=== PATIENT | female | born 1980 | race Caucasian/White ===

== ENCOUNTER 2019-12-22 18:17 | Emergency (ER) | payer OTHER, SELFPAY ==
[2019-12-22 18:21] VITALS: BP 127/84; PULSE 72; RESP 18; TEMP 36.7; O2SAT 100; BMI 25.8
--- NOTE | 2019-12-22 19:59 | W.ED.FALL ---
HPI - Fall General: Chief Complaint: Fall Stated Complaint: Syncope Time Seen by Provider: 12/22/19 19:55 History of Present Illness: HPI Narrative: 39-year-old female who was working in the kitchen got lightheaded and dizzy and started to fall felt like she is going to pass out, she did fall and struck the back of her head had a very brief loss of consciousness or stunned sensation. She not had any nausea or vomiting since then. She denies any chest pain did feel a brief episode of rapid heart rate. No nausea vomiting or diarrhea. Still feels very weak on arrival here mildly nauseous but not having vomiting. Mild headache. MD complaint: fall Fall from: standing Place fall occurred: home Loss of consciousness: Unsure Prolonged down time: no Symptoms prior to fall: lightheadedness, dizziness and palpitations Associated symptoms-after fall: Denies abdominal pain or chest pain Review of Systems Const: Denies: fever, chills, body aches, change in appetite, fatigue or malaise ENMT: Denies: throat pain, ear pain, nasal discharge or nasal congestion Card: Reports: palpitations; Denies: chest pain, edema, shortness of breath on exertion or shortness of breath when lying down Resp: Denies: shortness of breath, productive cough or non-productive cough GI: Denies: abdominal pain, nausea, vomiting, vomiting blood, coffee grounds in vomit, diarrhea, constipation, bloating, blood in stool or black tarry stool : Denies: flank pain, difficulty urinating, painful urination, urinary frequency or urinary urgency Skin/Breast: Denies: rash or itching PFSH ED PFSH: Social History Smoking and tobacco status: never smoked Physical Exam Const: COMMON NORMALS: no apparent distress GENERAL APPEARANCE: cooperative and comfortable ORIENTATION/CONSCIOUSNESS: Yes awake, Yes oriented to person, Yes oriented to place and Yes oriented to time HENMT: COMMON NORMALS: normocephalic, head/scalp atraumatic, hearing grossly normal bilaterally, external ears normal, EAC's normal, TM's normal bilaterally, nasal mucous membranes and turbinates normal, moist oral mucous membranes and oropharynx normal HEAD & SCALP: normocephalic and atraumatic NOSE: nasal mucous membranes and turbinates normal EXTERNAL EAR: Yes external ears normal EXTERNAL AUDITORY CANAL: EAC's normal TYMPANIC MEMBRANE: TM's normal bilaterally Eye: COMMON NORMALS: PERRL, EOMs intact bilaterally, conjunctivae normal and no scleral icterus CONJUNCTIVA: Yes conjunctivae normal PUPIL: Yes PERRL Neck/C-Spine: COMMON NORMALS: full ROM, no lymphadenopathy, supple and no JVD Lymph: LYMPHATIC: no lymphadenopathy noted and no lymphedema noted Resp: COMMON NORMALS: normal respiratory effort, no retractions, no use of accessory muscles and clear to auscultation bilaterally AUSCULTATION: clear to auscultation bilaterally Cardio: COMMON NORMALS: no JVD, regular rate, regular rhythm and no murmurs RATE: regular rate RHYTHM: regular rhythm GI: COMMON NORMALS: soft to palpation and no hepatosplenomegaly AUSCULTATION: Yes normoactive bowel sounds PALPATION: Yes soft, No tender, No guarding and Yes no hepatosplenomegaly Extremity: COMMON NORMALS: normal to inspection, normal capillary refill, no clubbing, cyanosis or edema, no calf tenderness and no pedal edema Neuro: SENSORIUM/ORIENTATION: Yes oriented to person, Yes oriented to place and Yes oriented to time Skin: COMMON NORMALS: no rashes or lesions noted GENERAL SKIN EXAM: no rashes or lesions noted Course ED course: Patient is feeling much better. Neurologic symptoms are completely normal organ to go ahead and discharge her home rest of his EKG which she is symptoms recheck. Vital Signs: Vital signs: Vital Signs Temperature 98.0 F 12/22/19 18:21 Pulse Rate 74 12/22/19 23:04 Respiratory Rate 18 12/22/19 23:04 Blood Pressure 99/67 12/22/19 23:04 Pulse Oximetry 96 12/22/19 23:04 - Fall Lab Data: Labs: Lab Results 12/22/19 12/22/19 12/22/19 Range/Units 20:24 20:35 20:35 WBC 11.5 H (4.0-10.0) 10^3/ uL RBC 4.67 (4.1-5.3) 10^6/u L Hgb 13.9 (11.5-15.3) g/dL Hct 41.6 (37.0-47.0) % MCV 89.1 (81-99) fL MCH 29.8 (28.0-34.0) pg MCHC 33.4 (30.0-36.0) g/dL RDW 12.4 (12.1-15.1) % Plt Count 253 (130-400) 10^3/c mm MPV 9.2 (7.4-10.4) fL Neut % (Auto) 76.9 % Lymph % (Auto) 17.8 % [place] % (Auto) 3.7 % Eos % (Auto) 0.7 % Baso % (Auto) 0.6 % Neut # (Auto) 8.8 H (1.8-7.7) 10^3/u L Lymph # (Auto) 2.0 (0.8-4.8) 10^3/u L [place] # (Auto) 0.4 (0.2-0.9) 10^3/u L Eos # (Auto) 0.1 (0.0-0.8) 10^3/u L Baso # (Auto) 0.1 (0.0-0.1) 10^3/u L Nucleated RBC % (a uto) 0 % Nucleated RBCs # 0.0 /100WBC Sodium 134 L (136-145) mmol/L Potassium 4.2 (3.5-5.1) mmol/L Chloride 98 (98-107) mmol/L Carbon Dioxide 25 (22-29) mmol/L Anion Gap 15.2 (5-19) BUN 16 (6-20) mg/dL Creatinine 0.6 (0.5-0.9) mg/dL GFR Calculation 111.3 (90-130) mL/min Glucose 117 H (65-115) mg/dL Calculated Osmolal ity 275 L (285-295) mOsm/k g Calcium 9.9 (8.5-10.5) mg/dL Total Bilirubin 0.2 (0.15-1.2) mg/dL AST 17 (0-32) U/L ALT 18 (0-33) U/L Alkaline Phosphata se 50 (35-105) IU/L Total Protein 7.5 (6.6-8.7) g/dL Albumin 4.6 (3.5-5.2) g/dL Globulin 2.9 (1.3-4.6) g/dL Urine Color Yellow (Yellow) Urine Appearance Hazy A (CLEAR) Urine pH 6.5 (5-7) Ur Specific Gravit y 1.010 (1.005-1.030) Urine Protein Neg (Negative) Urine Glucose (UA) Norm (Normal) Urine Ketones Negative (Negative) Urine Blood Neg (Negative) Urine Nitrate Negative (Negative) Urine Bilirubin Neg (NEGATIVE) Urine Urobilinogen Norm (Negative) mg/dL Ur Leukocyte Marva ase Negative (Negative) Urine RBC 0-4 H (0-2) /hpf Urine WBC 5-10 H (0-5) /hpf Ur Squamous Epith Cells 0-4 H (0-5) Urine Bacteria Trace (NONE) Discharge Plan Discharge Patient Disposition: Home, Self-Care Clinical Impression: Syncope Condition: Stable Prescriptions: No Action No Known Home Medications RF: 0 Discharge Orders: Discharge Order (Routine); Ordered 12/22/19 Ordered By: Juan Altman Referrals: Emilee Westbrook MD [Primary Care Provider] - Discharge Diet: Usual diet Discharge Activity: Increase activity as tolerated Activity Restrictions/Additional Instructions: Push fluids. Recheck if worsens Discharge Date/Time: 12/22/19 23:04 Coding Level of Care Code ED Pillowcase Cleaner for Artie Shabazz
[2019-12-22 20:00] VITALS: BP 115/79; BP 122/79; BP 130/74; PULSE 70; PULSE 71; PULSE 91
--- NOTE | 2019-12-22 20:16 | ECG_ITS ---
Measurements Intervals [place] Rate: 65 P: 32 MI: 179 QRS: 27 QRSD: 79 T: 36 QT: 391 QTc: 409 SINUS RHYTHM No previous ECG available for comparison Electronically Signed On 12-22-2019 20:42:36 CDT by Natalia Barahona M.D. [email or web address]
[2019-12-22 20:38] LABS: Add Urine Microscopic? YES; Bilirubin Urine Neg (NEGATIVE); Blood Urine Neg (Negative); Glucose Urine UA Norm (Normal); Ketones Urine Negative (Negative); Leukocyte Esterase Urine Negative (Negative); Nitrate Urine Negative (Negative); Protein Urine Neg (Negative); Urine Appearance Hazy (CLEAR); Urine Color Yellow (Yellow); Urobilinogen Urine Norm (Negative); pH Urine 6.5 (5-7)
[2019-12-22 20:40] LABS: Basophils # 0.1 10^3/uL (0.0-0.1); Basophils % 0.6 %; Eosinophils # 0.1 10^3/uL (0.0-0.8); Eosinophils % 0.7 %; Hematocrit 41.6 % (37.0-47.0); Hemoglobin 13.9 g/dL (11.5-15.3); Lymphocytes % 17.8 %; Mean Corpuscular HGB Conc 33.4 g/dL (30.0-36.0); Mean Corpuscular Hemoglobin 29.8 pg (28.0-34.0); Mean Corpuscular Volume 89.1 fL (81-99); Mean Platelet Volume 9.2 fL (7.4-10.4); Monocytes # 0.4 10^3/uL (0.2-0.9); Monocytes % 3.7 %; Neutrophils # 8.8 10^3/uL (1.8-7.7); Neutrophils % 76.9 %; Nucleated Red Blood Cells % 0 %; Platelet Count 253 10^3/cmm (130-400); Red Blood Count 4.67 10^6/uL (4.1-5.3); Red Cell Distribution Width 12.4 % (12.1-15.1); White Blood Count 11.5 10^3/uL (4.0-10.0)
[2019-12-22] MEDS: sodium chloride 0.9% 1,000 ML 999 ML IV (20:45)
[2019-12-22 20:46] LABS: Add Urine Culture? No; Bacteria Urine TRACE; RBC Urine 0-4 /hpf (0-2); Squamous Epithelial Cell Urine 0-4 (0-5)
[2019-12-22 20:58] LABS: Alanine Aminotransferase 18 U/L (0-33); Albumin Level 4.6 g/dL (3.5-5.2); Alkaline Phosphatase 50 IU/L (35-105); Anion Gap 15.2 (5-19); Aspartate Amino Transferase 17 U/L (0-32); Blood Urea Nitrogen 16 mg/dL (6-20); Calcium 9.9 mg/dL (8.5-10.5); Carbon Dioxide 25 mmol/L (22-29); Chloride 98 mmol/L (98-107); Globulin 2.9 g/dL (1.3-4.6); Glomerular Filtration Rate 111.3 mL/min (90-130); Glucose 117 mg/dL (65-115); Osmolality Calculated 275 mOsm/kg (285-295); Potassium 4.2 mmol/L (3.5-5.1); Sodium 134 mmol/L (136-145); Total Bilirubin 0.2 mg/dL (0.15-1.2); Total Protein 7.5 g/dL (6.6-8.7)
[2019-12-22 23:04] VITALS: BP 99/67; PULSE 74; RESP 18; O2SAT 96
== END 2019-12-22 23:04 | disposition home or self-care (01) ==
PROVIDERS: Emergency Provider Family Medicine; Family Provider Family Medicine; PCP Family Medicine
DX: R55 Syncope and collapse (principal); W18.00XA Striking against unspecified object with subsequent fall, initial encounter; Y92.000 Kitchen of unspecified non-institutional (private) residence as the place of occurrence of the external cause
CPT/HCPCS: 12345; 36415; 80053; 81001; 85025; 93005; 96360; 99283; A9270; J7030

== ENCOUNTER 2020-09-27 09:17 | Outpatient (CLI) | payer OTHER, SELFPAY ==
--- NOTE | 2020-09-27 09:23 | MM_ITS ---
WS: [id number] BILATERAL DIGITAL SCREENING MAMMOGRAM WITH CAD CLINICAL INFORMATION: SCREENING HISTORY: Screening mammogram. No current complaints. COMPARISON: August 23, 2016 TECHNIQUE: Bilateral CC and MLO. FINDINGS: The breast are composed of extremely dense tissue, which can limit the detection of small underlying mass lesions. No suspicious focal mass, asymmetry, calcifications, or architectural distortion. No ev idence of malignancy. Stable tiny punctate calcifications. MM/[id number] IMPRESSION: BI-RADS: 2-Benign FOLLOW UP: 1 Year Follow-up Recommend return to annual screening mammography.
== END 2020-09-27 09:18 | disposition home or self-care (01) ==
LOC: RADSHAW 09:22
PROVIDERS: PCP Family Medicine; Visit Provider Family Medicine
DX: Z12.31 Encounter for screening mammogram for malignant neoplasm of breast (principal)
CPT/HCPCS: 77067

== ENCOUNTER → 2021-04-26 08:30 | Outpatient (BNVA) | payer OTHER, SELFPAY | PROVIDERS: PCP Family Medicine; Visit Provider Obstetrics & Gynecology | DX: Z00.00 Encounter for general adult medical examination without abnormal findings (principal) | CPT/HCPCS: 80061; 83036; 84443 ==

== ENCOUNTER 2022-03-02 15:08 | Outpatient (CLI) | payer OTHER, SELFPAY ==
--- NOTE | 2022-03-02 15:17 | MM_ITS ---
WS: [id number] BILATERAL SCREENING DIGITAL BREAST TOMOSYNTHESIS MAMMOGRAM WITH CAD HISTORY: SCREENING COMPARISON: 09/27/2020 and 08/23/2016 Bilateral CC and MLO views with tomosynthesis and synthetic mammography submitted. Computer aided det ection analyzed. Breast composition: The breasts are extremely dense, which lowers the sensitivity of mammography. No suspicious masses, microcalcifications or architectural distortion. Scattered calcifications within e ach breast. MM/[place] [id number] IMPRESSION: BI-RADS: 2-Benign FOLLOW UP: 1 Year Follow-up
== END 2022-03-02 15:09 | disposition home or self-care (01) ==
PROVIDERS: PCP Family Medicine; Visit Provider Family Medicine
DX: Z12.31 Encounter for screening mammogram for malignant neoplasm of breast (principal)
CPT/HCPCS: 77063; 77067

== ENCOUNTER 2022-04-10 10:47 | Outpatient (CLI) | payer OTHER, SELFPAY ==
--- NOTE | 2022-04-10 11:03 | MM_ITS ---
WS: [id number] DIAGNOSTIC LEFT DIGITAL BREAST TOMOSYNTHESIS MAMMOGRAPHY WITH CAD. LEFT breast ultrasound, limited HISTORY: Palpable area upper-outer quadrant LEFT breast. COMPARISON: 03/02/2022 and 09/25/2020 Technique: CC, MLO and ML views. Spot compression LEFT CC and MLO. Breast composition: The breasts are heterogeneously dense, which may obscure small masses. Scattered calcifications throughout the breast. No distortion. No mass identified near the palpable marker. LEFT breast ultrasound, limited. Ultrasound directed to the palpable area at 12:00, 1 cm from the nipple. There is a very large simple cyst with good through transmission measuring 3.0 x 1.9 x 3.0 cm. No solid mass. MM/[place] [id number] IMPRESSION: BI-RADS: 2-Benign FOLLOW UP: 1 Year Follow-up Palpable area LEFT breast at 12:00 corresponds to a large simple cyst.
== END 2022-04-10 10:48 | disposition home or self-care (01) ==
PROVIDERS: PCP Family Medicine; Visit Provider Obstetrics & Gynecology
DX: N63.0 Unspecified lump in unspecified breast (principal)
CPT/HCPCS: 76642; 77061

== ENCOUNTER → 2022-09-06 14:57 | Outpatient (BNVA) | payer OTHER, SELFPAY | PROVIDERS: PCP Family Medicine; Visit Provider Emergency Medicine | DX: R09.81 Nasal congestion (principal); J10.1 Influenza due to other identified influenza virus with other respiratory manifestations | CPT/HCPCS: 87400 ==

== ENCOUNTER 2022-10-16 09:55 | Outpatient (CLI) | payer OTHER, SELFPAY ==
[2022-10-16 11:22] LABS: Free T4 Free Thyroxine 1.07 ng/dL (0.82-1.77); Thyroid Stimulating Hormone 1.53 uIU/mL (0.27-4.20)
[2022-10-17 14:35] LABS: Thyroid Peroxidase Antobodies 1 IU/mL (<9)
[2022-10-17 14:50] LABS: Thyroglobulin AB <1 IU/mL (< or = 1)
[2022-10-18 01:39] LABS: T3 Total 113 ng/dL (76-181)
[2022-10-23 15:44] LABS: TSH Receptor Binding Antibody <1.00 IU/L (< OR = 2.00)
== END 2022-10-16 09:56 | disposition home or self-care (01) ==
PROVIDERS: PCP Family Medicine; Visit Provider Internal Medicine
DX: R63.5 Abnormal weight gain (principal); Z83.49 Family history of other endocrine, nutritional and metabolic diseases
CPT/HCPCS: 36415; 83516; 84439; 84443; 84480; 86376; 86800

== ENCOUNTER 2023-04-18 13:58 | Outpatient (CLI) | payer OTHER, SELFPAY ==
--- NOTE | 2023-04-18 14:04 | MM_ITS ---
WS: [id number] BILATERAL 3D TOMOSYNTHESIS DIGITAL SCREENING MAMMOGRAPHY WITH CAD CLINICAL INFORMATION: SCREENING HISTORY: Screening mammogram. No current complaints. COMPARISON: 2021 TECHNIQUE: Bilateral CC and MLO views. FINDINGS: The breasts are composed of heterogeneous fibroglandular density tissue, which can limit the detectio n of small underlying mass lesions. No suspicious mass, asymmetry, calcifications, or architectural d istortion. No evidence of malignancy. Diffuse bilateral incidental punctate calcifications. MM/[place] [id number] IMPRESSION: BI-RADS: 2-Benign FOLLOW UP: 1 Year Follow-up Recommend return to annual screening mammography.
== END 2023-04-18 13:59 | disposition home or self-care (01) ==
PROVIDERS: PCP Family Medicine; Visit Provider Family Medicine
DX: Z12.31 Encounter for screening mammogram for malignant neoplasm of breast (principal)
CPT/HCPCS: 77063; 77067

== ENCOUNTER → 2023-08-18 13:13 | Outpatient (BNVA) | payer OTHER, SELFPAY | PROVIDERS: PCP Family Medicine; Visit Provider Nurse Practitioner | DX: J02.9 Acute pharyngitis, unspecified (principal) | CPT/HCPCS: 87400; 87880 ==

== ENCOUNTER → 2023-09-12 10:17 | Outpatient (BNVA) | payer OTHER, SELFPAY | PROVIDERS: PCP Family Medicine; Visit Provider Nurse Practitioner Women's Health | DX: Z32.00 Encounter for pregnancy test, result unknown (principal) | CPT/HCPCS: 81025 ==

== ENCOUNTER → 2023-09-20 09:37 | Outpatient (BNVA) | payer OTHER, SELFPAY | PROVIDERS: PCP Family Medicine; Visit Provider Nurse Practitioner Women's Health | DX: Z34.91 Encounter for supervision of normal pregnancy, unspecified, first trimester (principal); Z3A.09 9 weeks gestation of pregnancy | CPT/HCPCS: 76801; 81000 ==

== ENCOUNTER → 2023-10-14 12:20 | Outpatient (BNVA) | payer OTHER, SELFPAY | PROVIDERS: PCP Family Medicine; Visit Provider Obstetrics & Gynecology | DX: Z34.91 Encounter for supervision of normal pregnancy, unspecified, first trimester (principal); Z3A.12 12 weeks gestation of pregnancy | CPT/HCPCS: 76801 ==

== ENCOUNTER → 2023-10-17 14:00 | Outpatient (BNVA) | payer OTHER, SELFPAY | PROVIDERS: PCP Family Medicine; Visit Provider Obstetrics & Gynecology | DX: O09.91 Supervision of high risk pregnancy, unspecified, first trimester (principal); Z3A.00 Weeks of gestation of pregnancy not specified | CPT/HCPCS: 80307; 84144; 84702; 85025; 86592; 86762; 86803; 86850; 86900; 87086; 87340; 87491; 87591; 87806 ==

== ENCOUNTER → 2023-10-25 08:15 | Outpatient (BNVA) | payer OTHER, SELFPAY | PROVIDERS: PCP Family Medicine; Visit Provider Nurse Practitioner Women's Health | DX: O09.819 Supervision of pregnancy resulting from assisted reproductive technology, unspecified trimester (principal); O09.91 Supervision of high risk pregnancy, unspecified, first trimester; Z3A.00 Weeks of gestation of pregnancy not specified | CPT/HCPCS: 84144; 84702 ==

== ENCOUNTER → 2023-11-07 08:15 | Outpatient (BNVA) | payer OTHER, SELFPAY | PROVIDERS: PCP Family Medicine; Visit Provider Nurse Practitioner Women's Health | DX: O09.521 Supervision of elderly multigravida, first trimester (principal); O09.819 Supervision of pregnancy resulting from assisted reproductive technology, unspecified trimester; O09.91 Supervision of high risk pregnancy, unspecified, first trimester; Z3A.00 Weeks of gestation of pregnancy not specified | CPT/HCPCS: 84144; 84315 ==

== ENCOUNTER → 2023-12-02 09:26 | Outpatient (BNVA) | payer OTHER, SELFPAY | PROVIDERS: PCP Family Medicine; Visit Provider Nurse Practitioner Women's Health | DX: Z34.92 Encounter for supervision of normal pregnancy, unspecified, second trimester (principal); Z3A.20 20 weeks gestation of pregnancy | CPT/HCPCS: 76805 ==

== ENCOUNTER → 2023-12-09 14:38 | Outpatient (BNVA) | payer OTHER, SELFPAY | PROVIDERS: PCP Family Medicine; Visit Provider Obstetrics & Gynecology | DX: O09.91 Supervision of high risk pregnancy, unspecified, first trimester (principal); Z3A.00 Weeks of gestation of pregnancy not specified | CPT/HCPCS: 81000 ==

== ENCOUNTER → 2023-12-30 08:31 | Outpatient (BNVA) | payer OTHER, SELFPAY | PROVIDERS: PCP Family Medicine; Visit Provider Obstetrics & Gynecology | DX: Z34.92 Encounter for supervision of normal pregnancy, unspecified, second trimester (principal); Z3A.23 23 weeks gestation of pregnancy | CPT/HCPCS: 76816 ==

== ENCOUNTER → 2024-01-06 08:25 | Outpatient (BNVA) | payer OTHER, SELFPAY | PROVIDERS: PCP Family Medicine; Visit Provider Obstetrics & Gynecology | DX: O09.91 Supervision of high risk pregnancy, unspecified, first trimester (principal); O09.521 Supervision of elderly multigravida, first trimester; Z3A.00 Weeks of gestation of pregnancy not specified | CPT/HCPCS: 82950; 84315 ==

== ENCOUNTER → 2024-01-14 08:26 | Outpatient (BNVA) | payer OTHER, SELFPAY | PROVIDERS: PCP Family Medicine; Visit Provider Obstetrics & Gynecology | DX: O09.91 Supervision of high risk pregnancy, unspecified, first trimester (principal); Z3A.00 Weeks of gestation of pregnancy not specified | CPT/HCPCS: 82951; 82952 ==

== ENCOUNTER 2024-01-29 09:43 | Outpatient (CLI) | payer OTHER, SELFPAY ==
[2024-01-29 10:00] VITALS: BMI 29.0
[2024-01-29 10:06] VITALS: BP 130/75; PULSE 82
[2024-01-29 10:21] VITALS: BP 119/66; PULSE 81
[2024-01-29 10:36] VITALS: BP 112/66; PULSE 82
[2024-01-29 10:51] VITALS: BP 111/64; PULSE 80
[2024-01-29 11:00] VITALS: BP 111/64; PULSE 80
== END 2024-01-29 11:00 | disposition home or self-care (01) ==
LOC: OPOB 09:48 → OBGYN 09:49
PROVIDERS: PCP Family Medicine; Visit Provider Obstetrics & Gynecology
DX: O26.899 Other specified pregnancy related conditions, unspecified trimester (principal); Z3A.00 Weeks of gestation of pregnancy not specified; V86.95XA Unspecified occupant of 3- or 4- wheeled all-terrain vehicle (ATV) injured in nontraffic accident, initial encounter
CPT/HCPCS: 59025; 99211

== ENCOUNTER 2024-01-29 11:01 | Emergency (ER) | payer OTHER, SELFPAY ==
[2024-01-29 11:04] VITALS: BP 113/75; PULSE 91; RESP 18; TEMP 36.9; O2SAT 96
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
[2024-01-29 14:03] VITALS: BP 121/73; PULSE 80; RESP 14; O2SAT 98
== END 2024-01-29 14:06 | disposition home or self-care (01) ==
PROVIDERS: Emergency Provider Internal Medicine; PCP Family Medicine
DX: S13.9XXA Sprain of joints and ligaments of unspecified parts of neck, initial encounter (principal); V86.69XA Passenger of other special all-terrain or other off-road motor vehicle injured in nontraffic accident, initial encounter
CPT/HCPCS: 72040; 99283

== ENCOUNTER → 2024-02-03 07:56 | Outpatient (BNVA) | payer OTHER, SELFPAY | PROVIDERS: PCP Family Medicine; Visit Provider Obstetrics & Gynecology | DX: O09.91 Supervision of high risk pregnancy, unspecified, first trimester (principal); Z3A.00 Weeks of gestation of pregnancy not specified | CPT/HCPCS: 84315; 85025; 86850 ==

== ENCOUNTER → 2024-03-30 08:04 | Outpatient (BNVA) | payer OTHER, SELFPAY | PROVIDERS: PCP Family Medicine; Visit Provider Obstetrics & Gynecology | DX: O09.91 Supervision of high risk pregnancy, unspecified, first trimester (principal); Z3A.00 Weeks of gestation of pregnancy not specified | CPT/HCPCS: 84315; 87081 ==

== ENCOUNTER 2024-04-13 18:12 | Outpatient (CLI) | payer OTHER, SELFPAY ==
[2024-04-13 18:15] VITALS: BMI 29.7
[2024-04-13 18:26] VITALS: BP 120/62; PULSE 73
--- NOTE | 2024-04-13 18:38 | PC.NURSE ---
Esme KEITH at bedside, pt reports vaginal bleeding when wiping vagina after using the restroom, Esme KEITH visualized pt labias and noted no visible blood. Esme KEITH asked pt to look at underwear for blood, Esme KEITH visualized no blood in underwear. Esme KEITH also looked at used toilet paper used and did not visualize any blood.
[2024-04-13 18:43] VITALS: BP 105/55; PULSE 77
== END 2024-04-13 18:56 | disposition home or self-care (01) ==
LOC: OPOB 18:13 → OBGYN 18:13
PROVIDERS: PCP Family Medicine; Visit Provider Obstetrics & Gynecology
DX: O46.90 Antepartum hemorrhage, unspecified, unspecified trimester (principal); Z3A.00 Weeks of gestation of pregnancy not specified
CPT/HCPCS: 59025; 84315; 99211

== ENCOUNTER 2024-04-24 10:49 | Inpatient (IN) | payer OTHER, SELFPAY ==
[2024-04-24] VITALS (22 sets, daily range): BP systolic 100–121; BP diastolic 55–66; PULSE 68–88; RESP 16; BMI 30.2
[2024-04-24 12:05] LABS: Basophils # 0.1 10^3/uL (0.0-0.1); Basophils % 0.5 %; Eosinophils # 0.1 10^3/uL (0.0-0.8); Eosinophils % 0.5 %; Hematocrit 35.9 % (36-47); Lymphocytes % 20.5 %; Mean Corpuscular HGB Conc 35.4 g/dL (30-55); Mean Corpuscular Hemoglobin 31.9 pg (27-33); Mean Corpuscular Volume 90.2 fl (85-98); Monocytes # 0.5 10^3/uL (0.2-0.9); Neutrophils # 7.19 10^3/uL (1.8-7.7); Neutrophils % 72.8 %; Nucleated Red Blood Cells % 0 %; Platelet Count 203 10^3/cmm (157-399); Red Blood Count 3.98 10^6/uL (3.85-5.65); Red Cell Distribution Width 13.9 % (12.1-15.1); White Blood Count 9.88 10^3/uL (3.29-11.43)
[2024-04-24] MEDS: miSOPROStol 100 mcg tablet 25 MCG VAGINAL ×3 (12:09→21:42)
--- NOTE | 2024-04-24 18:27 | PM.OPHPUD ---
Labor & Delivery H&P Update Date of Procedure: April 24, 2024 Date H&P Performed: 04/20/24 H&P update information: I have reviewed H&P completed within last 30 days, I have examined patient prior to procedure and No changes to prior documentation Admission Diagnosis:
[2024-04-24] MEDS: acetaminophen 325 mg Tablet 650 MG PO (22:30)
[2024-04-25] VITALS (81 sets, daily range): BP systolic 98–134; BP diastolic 50–72; PULSE 62–100; RESP 16–17; TEMP 36.7; O2SAT 89–100
[2024-04-25] MEDS: miSOPROStol 100 mcg tablet 25 MCG VAGINAL (02:26)
[2024-04-25] MEDS: ROPivacaine syringe 100 MG/50 ML SYRINGE 10 MG EPIDURAL ×2 (10:34→14:21)
[2024-04-25] MEDS: lactated ringers 1,000 ML 999 ML IV (10:34)
[2024-04-25] MEDS: dextrose 5%-lactated ringers 1,000 ML 125 ML IV ×2 (10:34→16:32)
--- NOTE | 2024-04-25 10:56 | P.ANESASSM_ITS ---
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 Anesthetic Plan ASA status: 2 Anesthesia: Regional (specify below) (Labor epidural ) Medications/Allergies Home Medications Medication Instructions Recorded Confirmed Last Taken Type docosahexaenoic acid 200 mg 200 mg PO DAILY 09/12/23 04/24/24 Unknown History capsule ( DHA) vits no.124-ferrous fum 1 tab PO DAILY 04/24/24 04/24/24 Unknown History 27 mg iron-folic acid 800 mcg tablet ( Vitamin) Allergies Allergy/AdvReac Type Severity Reaction Status Date / Time sulfamethoxazole Allergy rash Verified 04/13/24 11:51 [From Bactrim] trimethoprim [From Bactrim] Allergy rash Verified 04/13/24 11:51 Current Medications Generic Name Dose Route Start Last Admin Trade Name Freq PRN Reason Stop Dose Admin Acetaminophen 650 mg 04/24/24 11:09 04/24/24 22:30 Acetaminophen 325 Mg Tablet PO 650 mg Q6H PRN Administration Mild pain or temp > 100.4 Dextrose/Lactated Ringer's 1,000 mls @ 125 mls/hr 04/24/24 11:15 04/25/24 10:34 Dextrose 5%-Lactated Ringers IV 125 mls/hr .Q8H DAVI Administration Lactated Ringer's 1,000 mls @ 999 mls/hr 04/24/24 11:09 04/25/24 10:34 Lactated Ringers IV 999 mls/hr .Q1H1M PRN Administration Per L&D Rescitation Protocol Ropivacaine 100 mg in 50 mls @ 10 mls/hr 04/25/24 10:15 04/25/24 10:34 Naropin Syringe EPIDURAL 10 mls/hr .Q5H DAVI Administration Misoprostol 25 mcg 04/24/24 11:10 04/24/24 12:09 Misoprostol 100 Mcg Tablet VAGINAL 25 mcg ONCE PRN Administration LABOR INDUCTION Misoprostol 25 mcg 07/19/24 16:31 04/24/24 21:42 Misoprostol 100 Mcg Tablet VAGINAL 25 mcg ONCE PRN Administration LABOR INDUCTION [facility] Anesthesia Medical History Family history of thyroid problem No pertinent past medical history Denies diabetes, asthma, hypertension, seizures, DVT/PE PCP: Dr. Mendez Surgical History Endometrial polyp (~06/2023) S/P tubal ligation (~2005) via umbilicus in 2005 at [facility] [place] S/P cholecystectomy (~2010) 2010- laparoscopic surgery Family History Sister Thyroid disease Daughter Thyroid disease Grandfather Stroke Maternal and paternal Grandmother Stroke Maternal and paternal Family/Other Breast cancer Paternal aunt, diagnosed before age 40 Mother Colorectal cancer Diagnosed with stage III in her early 50s Denies family history of Ovarian cancer Diabetes Heart disease Hyperlipidemia Hypertension Uterine cancer Social History (Updated 04/20/24 @ 09:23 by Mindi Cole LPN) Smoking and tobacco/nicotine status: never used tobacco/nicotine Female Reproductive History : 4 Data Anesthesia 04/24/24 11:40 Short CBC 04/24/24 Range/Units 11:40 WBC 9.88 (3.29-11.43) 10^3/uL Hgb 12.70 (11.27-16.99) g/dL Hct 35.9 L (36-47) % MCV 90.2 (85-98) fl Plt Count 203 (157-399) 10^3/cmm Neut % (Auto) 72.8 % Neut # (Auto) 7.19 (1.8-7.7) 10^3/uL Blood Bank 04/24/24 11:40 Blood Type A Negative Rho(D) Type Rh negative Antibody Screen Negative Cardiac Studies: 2 No Data to Display
--- NOTE | 2024-04-25 10:58 | ANES.PROC ---
Anesthesia Procedures Procedure/Date: 04/25/24 Nerve Block ^: Nerve Block 1: Time Out Performed: Yes Consent: requested by attending/covering physician Nerve block location: other (lumbar epidural) Anesthesia monitors applied: pulse oximetry and BP cuff Anesthetic Used: lidocaine 1% Amount of anesthesia used (mL): 2 Patient Tolerated Procedure: well and no complications Complications: none Additional Comments: Easy single pass epidural with distinct AMINA; catheter advanced with great ease. No paresthesia or complication noted. Epidural: Lumbar Level: L4-L5 Epidural position: sitting Epidural procedure: sterile prep of area, 1% lidocaine to numb the area, 18 g needle, neg for paresthesia, test dose given, 1.5% xylocaine 1:200k epi, no systemic response, sterile dressing applied, L.U.D. no apparent complications and 0.2% Ropiavacaine @ mls/hr (11)
--- NOTE | 2024-04-25 13:46 | PM.PN ---
Subjective Subjective: Mrs. Telles 43-year-old female with an estimated stational age at 40 weeks, admitted for elective induction. Received misoprostol for cervical ripening. Refers doing good. Epidural in place. Vitals/I&O/Wt Last Vital Signs Pulse 74 04/25/24 13:42 Resp 16 04/24/24 10:55 BP 114/59 04/25/24 13:42 Pulse Ox 99 04/25/24 11:25 O2 Del Method Room Air 04/24/24 12:41 Weight last 48 hrs Weight 84.822 kg Physical Exam Narrative: GA: Alert and oriented ?3. Lungs: Clear to auscultation bilaterally. Heart: Regular rhythm and rate. Abdomen: Gravid, full the height equals dates, nontender. MASTER POLICE DETECTIVE: SVE; dilation: 5 cm, effacement: 80%, station: 0, presentation: Cephalic, membranes: Intact memory. Extremities: no edema, no cyanosis, no calves pain. heart tracing: Basal rate: 140's bpm, Variability: moderate, Accelerations: present, Decelerations: absent, Contraction: q4-6min. Urinary Catheter Management: Owens: Cath Placed During This Visit: yes Urinary Catheter Date of Insertion: 04/25/24 Urinary Catheter Time of Insertion: 11:30 Data 04/26/24 03:41 A&P Assessment and plan (1) Term : heart tracing category 1. scalp stimulation with good. Anticipate vaginal delivery. Oxytocin augmentation ordered. Plan Continue monitoring. Oxytocin augmentation. Attestations Medical Necessity Statement*: In my professional opinion per admitting Coding Level of Care Code Acute Code for Chg Fwd Diagnoses Term Z34.90
[2024-04-25] MEDS: oxytocin 30 UNIT/500 ML BAG IV (14:22)
--- NOTE | 2024-04-25 16:12 | PM.DELIVERY ---
Delivery Note: Date of delivery: April 25, 2024 Pre-delivery diagnoses: Term Post-delivery diagnoses: Term delivered Procedure: Spontaneous vaginal delivery Delivering Physician: Lamonte Fuentes MD Estimated blood loss (mL): 300 Delivery: The patient was noted to be complete and pushing, so was placed in the dorsal lithotomy position, prepped and draped in the usual sterile fashion for a vaginal delivery. Pt. Noted to have epidural anesthesia. At 1536 the patient delivered a viable term female infant weighing 3515 g with scores of 8 and 9 at one and five minutes, respectively. The vertex was delivered spontaneously over intact perineum. The patient was asked to push and the head delivered spontaneously in the HARJINDER position, over an intact perineum. A nuchal cord was checked and 1 noted, and relieved around head as necessary. The anterior shoulder delivered easily and the posterior shoulder followed. The remainder of the infant was easily delivered and the oropharynx and nasopharynx was bulb suctioned. The was noted to have spontaneous cry and spontaneous movement of all four extremities. The cord was clamped x 2 and cut and noted to have 2 arteries and one vein. The infant was passed to the mother's abdomen where nursing personnel were in attendance. Cord blood sample was then obtained. The placenta delivered intact spontaneously and the uterus was explored. 20 units of Pitocin was placed in the IV bag to firm the uterus. Examination of the cervix and vaginal vault did not reveal any lacerations. A vaginal pack was then placed. Examination of the perineum showed no lacerations. The vaginal pack was then removed. The patient tolerated this procedure well, and recovered in L&D with her in their LDR room. All sponge and needle counts were correct. Post-Delivery Status: Good and hemodynamically stable History History History 4 Term 3 0 Miscarriages/Ectopic 0 Living Children 3 Coding Level of Care Code Acute Code for Chg Fwd
[2024-04-25] MEDS: docusate sodium 100 mg Capsule PO (18:16)
[2024-04-25] MEDS: benzocaine-menthol 78 gm Canister 1 SPRAY TOPICAL ×2 (18:16→22:10)
[2024-04-25] MEDS: ibuprofen 800 mg tablet PO (21:10)
[2024-04-26 00:30] VITALS: BP 115/70; PULSE 74; RESP 16; TEMP 36.5; O2SAT 100
[2024-04-26 02:40] VITALS: BP 112/71; PULSE 64; RESP 16; TEMP 36.7; O2SAT 99
[2024-04-26 03:48] LABS: Hematocrit 32.7 % (36-47); Mean Corpuscular HGB Conc 35.2 g/dL (30-55); Mean Corpuscular Hemoglobin 31.9 pg (27-33); Mean Corpuscular Volume 90.8 fl (85-98); Mean Platelet Volume 9.8 fL (7.4-10.4); Platelet Count 182 10^3/cmm (157-399); Red Cell Distribution Width 13.6 % (12.1-15.1); White Blood Count 10.92 10^3/uL (3.29-11.43)
[2024-04-26 05:15] VITALS: BP 106/63; PULSE 69; RESP 16; TEMP 36.6; TEMP 36.7; O2SAT 96
[2024-04-26] MEDS: PRENATAL VIT NO.130/IRON/FOLIC 1 EACH TABLET PO (08:25)
[2024-04-26] MEDS: docusate sodium 100 mg Capsule PO ×2 (08:25→20:24)
[2024-04-26] MEDS: ibuprofen 800 mg tablet PO ×3 (08:25→20:24)
[2024-04-26 09:00] VITALS: BP 103/67; PULSE 75; RESP 16; TEMP 36.6; O2SAT 97
[2024-04-26 16:06] VITALS: BP 102/63; PULSE 78; RESP 16; TEMP 36.7
--- NOTE | 2024-04-26 19:18 | PM.OBGYDC ---
Discharge Providers LOOPING MACHINE OPERATOR Date of Admission: 04/24/24 10:49 Date of Discharge: 04/26/24 Attending Provider at Admission: Lamonte Fuentes MD Attending Provider at Discharge: Lamonte Fuentes MD Primary LOOPING MACHINE OPERATOR: Lamonte Fuentes MD Primary Care Provider: Rayray Mendez MD Diagnoses at Discharge Discharge Diagnosis (1) Term : Status: Acute (2) Term delivered: Status: Acute (3) resulting from in-vitro fertilization: Status: Acute Reason for Visit Reason for Visit: NST Hospital Course Hospital Course Mrs. Telles 43-year-old male with an estimated gestational age of 40 weeks +3 days admitted for elective induction. She was given misoprostol for cervical ripening and oxytocin for labor augmentation she progressed to have a spontaneous vaginal delivery without complications. She delivered a term female infant Apgars 8/9, with a birthweight of 3912 g. observation has been uneventful. Tolerating diet well. Ambulating without difficulty. Patient was counseled regarding pelvic rest for 6 weeks (no sex, no tampons, no vaginal douches). Return to the emergency room if any fever, increased bleeding or pain. Information Peripartum Data: Delivery Method: Vaginal Physical Exam Narrative: GA; alert and oriented x 3 HEENT: normal Breasts: engorged Nipples - skin intact Lungs; clear to auscultation Heart: regular rhythm, no murmurs. Abd: Appropriately tender. BS+. Uterine fundus below umbilicus. No Fundal Tenderness. Perineum: normal lochia. Extremities: no edema, no cyanosis, no tenderness. Urinary Catheter Management: Owens: Cath Placed During This Visit: yes Urinary Catheter Date of Insertion: 04/25/24 Urinary Catheter Time of Insertion: 11:30 History History History 4 Term 3 0 Miscarriages/Ectopic 0 Living Children 3 Discharge Data Studies Completed and Pending Pending at discharge Category Date Time Status Complete Crossmatch Routine Lab 04/24/24 11:40 Results Rho D Immune Globulin Routine Lab 04/24/24 11:40 Results Type and Screen Routine Lab 04/24/24 11:40 Results Laboratory Results WBC 10.92 10^3/uL (3.29-11.43) 04/26/24 03:41 RBC 3.60 10^6/uL (3.85-5.65) L 04/26/24 03:41 Hgb 11.50 g/dL (11.27-16.99) 04/26/24 03:41 Hct 32.7 % (36-47) L 04/26/24 03:41 MCV 90.8 fl (85-98) 04/26/24 03:41 MCH 31.9 pg (27-33) 04/26/24 03:41 MCHC 35.2 g/dL (30-55) 04/26/24 03:41 RDW 13.6 % (12.1-15.1) 04/26/24 03:41 Plt Count 182 10^3/cmm (157-399) 04/26/24 03:41 MPV 9.8 fL (7.4-10.4) 04/26/24 03:41 Neut % (Auto) 72.8 % 04/24/24 11:40 Lymph % (Auto) 20.5 % 04/24/24 11:40 [place] % (Auto) 5.0 % 04/24/24 11:40 Eos % (Auto) 0.5 % 04/24/24 11:40 Baso % (Auto) 0.5 % 04/24/24 11:40 Neut # (Auto) 7.19 10^3/uL (1.8-7.7) 04/24/24 11:40 Lymph # (Auto) 2.0 10^3/uL (0.8-4.8) 04/24/24 11:40 [place] # (Auto) 0.5 10^3/uL (0.2-0.9) 04/24/24 11:40 Eos # (Auto) 0.1 10^3/uL (0.0-0.8) 04/24/24 11:40 Baso # (Auto) 0.1 10^3/uL (0.0-0.1) 04/24/24 11:40 Nucleated RBC % (auto) 0 % 04/24/24 11:40 Nucleated RBCs # 0.0 /100WBC 04/24/24 11:40 Blood Type A Negative 04/24/24 11:40 Rho(D) Type Rh negative 04/24/24 11:40 Antibody Screen Negative 04/24/24 11:40 Screen Negative (Negative) 04/26/24 03:41 Vitals Last Vital Signs Temp 98.0 F 04/26/24 16:06 Pulse 78 04/26/24 16:06 Resp 16 04/26/24 16:06 BP 102/63 04/26/24 16:06 Pulse Ox 97 04/26/24 09:00 O2 Del Method Room Air 04/26/24 09:00 Results Labs OB ([facility]): Obstetrics US 12/30/23 Blood Type A Negative 04/24/24 Antibody Screen Negative 04/24/24 Hct 32.7 % (36-47) L 04/26/24 Hgb 11.50 g/dL (11.27-16.99) 04/26/24 Rho(D) Type Rh negative 04/24/24 Plt Count 182 10^3/cmm (157-399) 04/26/24 Hep Bs Antigen Non-reactive (Nonreactive) 10/17/23 Hepatitis C Antibody Non-reactive (Nonreactive) 10/17/23 Rubella IgG Antibody 195.0 IU/mL (0.0-10.0) H 10/17/23 RPR Nonreactive (Nonreactive) 10/17/23 HIV 1&2 Ab & HIV 1 Ag Non-reactive (Non-Reactiv) 10/17/23 TSH 1.53 uIU/mL (0.27-4.20) 10/16/22 Free T4 1.07 ng/dL (0.82-1.77) 10/16/22 C.trachomatis RNA (TMA) Not detected (NOT DETECTED) 10/17/23 N.gonorrhoeae RNA (TMA) Not detected (NOT DETECTED) 10/17/23 T. vaginalis Amp RNA Not detected (NOT DETECTED) 10/17/23 Chlamydia/GC Comment See note 10/17/23 Cystic Fibrosis Screen Carrier 10/25/23 Glucose 1 Hr 50 gm 157 mg/dL (85-140) H 01/06/24 Gest Glucose Tolerance mg/dL 01/14/24 Hemoglobin A1c 5.3 % (4.0-6.0) 04/26/21 Progesterone 41.93 ng/mL 11/07/23 Ser , Semi-Qnt 75451.00 mIU/mL 10/25/23 HCG, Qual Positive (Negative) H 09/12/23 Urine Opiates Screen Negative ng/mL (Negative) 10/17/23 Ur Barbiturates Screen Negative ng/mL (Negative) 10/17/23 Ur Phencyclidine Scrn Negative ng/mL (Negative) 10/17/23 Ur Amphetamines Screen Negative ng/mL (Negative) 10/17/23 U Benzodiazepines Scrn Negative ng/mL (Negative) 10/17/23 Urine Cocaine Screen Negative ng/mL (Negative) 10/17/23 U Marijuana (THC) Screen Negative ng/mL (Negative) 10/17/23 Micro Urine Specimen 10/17/23 Discharge Plan Discharge Patient Disposition: Home Condition: Stable Prescriptions: New ibuprofen 800 mg tablet 800 mg PO TID PRN (Reason: pain) Qty: 60 0RF acetaminophen 325 mg capsule 325 mg PO Q4H PRN (Reason: fever or postoperative pain) Qty: 60 0RF Continued DHA 200 mg capsule 200 mg PO DAILY Vitamin 27 mg iron- 800 mcg Tablet 1 tab PO DAILY Discharge Orders: Discharge Order (Routine); Ordered 04/26/24 Ordered By: Lamonte Fuentes Referrals: Lamonte Fuentes MD [Physician] - 6 Weeks Discharge Diet: Usual diet Discharge Activity: Limit activity as instructed Patient Instructions: Depression (DC), Opioid Safety (GEN), Preeclampsia and Eclampsia After Delivery (GEN), Hemorrhage (DC), OB Discharge Report, OB Food/Drug Interaction Guide, Opioid Safety, OB Home Care, OB Vaginal Deliveries - [facility], Abnormal Bleeding Activity Restrictions/Additional Instructions: 1. Please call [facility] on next working day to make your post-operative appointment in 2 weeks. 2. Please stay home until you come back to the clinic on first post-hospatilization check up. 3. Please follow instructions on your medications CAREFULLY. 4. If you have abdominal incision, do not cover it unless dressing is necessary because of drainage. OK to shower, but avoid bath. Leave steri-strips until they fall off. If they are still on one week after surgery, you may remove them. 5. If you had vaginal surgery or vaginal repair, Dr. Fuentes may instruct you to take SITZ bath. 6. Yellow, blood tinged odorous vaginal discharge is usually normal after hysterectomy or vaginal surgeries. 7. No SEXUAL INTERCOURSE, tampons, or douches until you are completely released from the post-operative care. 8. Avoid constipation by eating right and maybe using some Metamucil or Milk of Magnesia. 9. All prescription refills are given during the working hours. Please do no wait till it runs out. Call the clinic at [phone] before your medication runs out. The clinic will get in touch with your doctor to prescribe medications if necessary. 10. Please remain within 40 mile radius from our hospital because emergencies do happen now and then during the post-operative period. 11. If you have stairs at home, take one step at a time slowly and minimize the number of trips. It helps to stay in one floor for the next few days. No lifting except what you can lift by one hand until you are released from the post-operative care. 12. Driving is discouraged until you are well healed. It may be 3-4 weeks before you feel strong enough to drive. You should be able to turn and look through the rear window without pain and you should be able to push the brake pedal very hard without pain before you drive. No fast rules, but SAFETY should be your primary concern. DO NOT drive if you are on sedating medications such as narcotics. 13. Call the clinic (during working hours) to make urgent appointment or go to the Emergency room, if any of the following occurs: i. Vaginal bleeding becomes heavy, more than a period. ii. Incision becomes red and sore, or drains pus. iii. Your TEMPERATURE is over 100.4F or you have chill. iv. IV site becomes red and swollen (a little ``knot?? is usually OK) v. Persistent nausea and vomiting vi. Persistent constipation or diarrhea vii. Rash or allergic reaction to medications. Discharge Attestations LOOPING MACHINE OPERATOR Time Spent in Discharge Care*: greater than 30 min Coding Level of Care Code Acute Code for Chg Fwd Diagnoses Term Z34.90 Term delivered O80 resulting from in-vitro fertilization O09.819
[2024-04-26 21:09] VITALS: BP 106/68; PULSE 76; RESP 16; TEMP 36.6; O2SAT 96
[2024-04-27 05:00] VITALS: BP 110/73; PULSE 76; RESP 16; TEMP 36.7; O2SAT 95
[2024-04-27 07:54] VITALS: BP 114/64; PULSE 64; RESP 16; TEMP 36.7
--- NOTE | 2024-04-27 08:00 | ANE.PACU2 ---
Inpatient post-anesthesia follow up: Airway intact: Yes Vital signs: Temperature 98.0 F Pulse Rate 64 Respiratory Rate 16 Blood Pressure 114/64 Pulse Oximetry 95 Oxygen Delivery Me thod Room Air Oxygen Flow Rate Fraction of Inspir ed Oxygen Hydration adequate: Yes Nausea and vomiting: No Pain level: 1 Mental status: Baseline Epidural Start/End: Epidural Start Date: 04/25/24 Epidural Start Time: 10:25 Epidural End Date: 04/25/24 Epidural End Time: 16:12
== END 2024-04-27 08:00 | disposition home or self-care (01) | DRG 807 ==
LOC: OPOB 10:49 → OBGYN 16:46
PROVIDERS: Admitting Provider Obstetrics & Gynecology; PCP Family Medicine; Visit Provider Obstetrics & Gynecology
DX: O48.0 Post-term pregnancy (principal); Z37.0 Single live birth; Z3A.40 40 weeks gestation of pregnancy; O69.81X0 Labor and delivery complicated by cord around neck, without compression, not applicable or unspecified
CPT/HCPCS: 36415; 51702; 59025; 59409; 85025; 85027; 85460; 86850; 86900; 99211; J2590; J2795; J7120; J7121